=== PATIENT | male | born 1970 | race African-American/Black ===

== ENCOUNTER 2017-01-31 17:22 | Emergency (ER) | payer BC | END 2017-01-31 17:47 | disposition home or self-care (01) | LOC: NAV ERS 17:22 | DX: S83.92XA Sprain of unspecified site of left knee, initial encounter (principal); S60.211A Contusion of right wrist, initial encounter; E11.9 Type 2 diabetes mellitus without complications; Z79.84 Long term (current) use of oral hypoglycemic drugs; W01.0XXA Fall on same level from slipping, tripping and stumbling without subsequent striking against object, initial encounter | CPT/HCPCS: 99283 ==

== ENCOUNTER 2021-11-14 08:07 | Emergency (ER) | payer BC | END 2021-11-14 09:00 | disposition home or self-care (01) | LOC: NAV ERS 08:07 | DX: R51.9 Headache, unspecified (principal); R10.9 Unspecified abdominal pain; E11.9 Type 2 diabetes mellitus without complications; Z86.16 Personal history of COVID-19; Z79.84 Long term (current) use of oral hypoglycemic drugs; Z79.899 Other long term (current) drug therapy | CPT/HCPCS: 36416; 99284 ==

== ENCOUNTER 2022-02-04 10:26 | Emergency (ER) | payer BC, OTHER | END 2022-02-04 11:05 | disposition home or self-care (01) | LOC: NAV ERS 10:26 | DX: T78.40XA Allergy, unspecified, initial encounter (principal); E11.9 Type 2 diabetes mellitus without complications; Z86.16 Personal history of COVID-19; Z79.899 Other long term (current) drug therapy; Z79.84 Long term (current) use of oral hypoglycemic drugs | CPT/HCPCS: 99282 ==

== ENCOUNTER 2022-06-02 17:38 | Emergency (ER) | payer BC | END 2022-06-02 18:38 | disposition home or self-care (01) | LOC: NAV ERS 17:38 | DX: M19.032 Primary osteoarthritis, left wrist (principal); M19.031 Primary osteoarthritis, right wrist; E11.9 Type 2 diabetes mellitus without complications; Z86.16 Personal history of COVID-19; Z79.84 Long term (current) use of oral hypoglycemic drugs | CPT/HCPCS: 99283 ==